=== PATIENT | male | born 1960 | race African-American/Black ===

== ENCOUNTER 2020-02-10 15:48 | Inpatient (IN) | payer MEDICAID, SELFPAY ==
[~2020-02-10] VITALS: Ht 193 cm; Wt 96.2 kg
[2020-02-10] MEDS ORDERED: AZITHROMYCIN IV 500 MG in IV DEXTROSE 5% 250 ML IV ONE (16:15)
[2020-02-10] MEDS ORDERED: CEFTRIAXONE 1 G in IV DEXTROSE 5% 50 ML IV ONE (16:15)
[2020-02-10] MEDS ORDERED: DEXAMETHASONE SOD PHOSPHATE 4 MG INJ IV ONE (16:15)
[2020-02-10] MEDS ORDERED: CEFTRIAXONE /D5W 50ML IVPB **ER PYXIS IV ONE (16:37)
[2020-02-10] MEDS ORDERED: AZITHROMYCIN 500MG/ D5W 250ML IVPB **ER PYXIS ONLY IV ONE (16:37)
[2020-02-10] MEDS ORDERED: DEXAMETHASONE SOD PHOSPHATE 4 MG INJ ONE (16:37)
[2020-02-10 16:49] LABS: BASOPHILS % (AUTO) 0.2 % (0.0-2.0); HEMATOCRIT 44.9 % (36.7-47.1); HEMOGLOBIN 15.3 g/dL (12.5-16.3); LYMPHOCYTES % (AUTO) 19.1 % (20.5-51.5); MEAN CORPUSCULAR HGB CONC 34 g/dL (32.5-36.3); MEAN CORPUSCULAR VOLUME 85.1 fL (73.0-96.2); MONOCYTES # (AUTO) 0.5 K/uL (2.0-10.0); MONOCYTES % (AUTO) 10.2 % (0.0-11.0); NEUTROPHILS # (AUTO) 3.7 K/uL (1.8-8.9); NEUTROPHILS % (AUTO) 70.5 % (38.5-71.5); PLATELET COUNT (AUTO) 278 K/uL (152-348); RED BLOOD CELL COUNT(AUTO) 5.28 MIL/uL (4.06-5.63); WHITE BLOOD COUNT (AUTO) 5.3 K/uL (3.6-10.2)
[2020-02-10] MEDS ORDERED: AMPH10CA3 PO (16:53)
[2020-02-10] MEDS ORDERED: HYDR-3972 PO (16:53)
[2020-02-10] MEDS ORDERED: POTA-58 PO (16:53)
[2020-02-10] MEDS ORDERED: AMIO200T5 PO (16:53)
[2020-02-10] MEDS ORDERED: EMPA25TA PO (16:53)
[2020-02-10] MEDS ORDERED: BISO5TAB20 PO (16:53)
[2020-02-10 17:12] LABS: CREATININE 1.2 mg/dL (0.6-1.3); POTASSIUM 5.4 mmol/L (3.5-5.1)
[2020-02-10] MEDS ORDERED: IV NORMAL SALINE 1000 ML BAG IV ONE (17:15)
[2020-02-10 17:22] LABS: BILIRUBIN,DIRECT 0.2 mg/dL (0.0-0.2); BILIRUBIN,TOTAL 0.4 mg/dL (0.2-1.0); MAGNESIUM 2.5 mg/dL (1.8-2.4)
[2020-02-10 17:34] LABS: THYROID STIMULATING HORMONE 0.952 mIU/mL (0.358-3.740)
[2020-02-10] MEDS ORDERED: HYDROCODONE/APAP 5-325MG TABLET PO ONE (18:00)
[2020-02-10] MEDS ORDERED: HYDROCODONE/APAP 5-325MG TABLET ONE (18:09)
[2020-02-10] MEDS ORDERED: CLOPIDOGREL 75 MG TABLET PO ONE (18:15)
[2020-02-10] MEDS ORDERED: INSULIN REGULAR, HUMAN 300 UNIT/3 ML VIAL IV ONE (18:15)
[2020-02-10] MEDS ORDERED: ENOXAPARIN SODIUM 100 MG/ML DISP.SYRIN SQ ONE ×2 (18:15→18:27)
[2020-02-10] MEDS ORDERED: ASPIRIN 325 MG TABLET PO ONE (18:15)
[2020-02-10] MEDS ORDERED: ACETAMINOPHEN ES 500 MG TABLET PO ONE (18:15)
[2020-02-10] MEDS ORDERED: CLOPIDOGREL 75 MG TABLET ONE (18:27)
[2020-02-10] MEDS ORDERED: ENOXAPARIN SODIUM 30 MG/0.3 ML DISP.SYRIN ONE (18:27)
[2020-02-10] MEDS ORDERED: ACETAMINOPHEN ES 500 MG TABLET ONE (18:27)
[2020-02-10] MEDS ORDERED: ASPIRIN 325 MG TABLET ONE (18:27)
[2020-02-10] MEDS ORDERED: INSULIN REGULAR, HUMAN 300 UNIT/3 ML VIAL ONE (18:28)
[2020-02-10] MEDS: ALBUTEROL SULFATE 8 GM HFA.AER.AD IH PRN (18:35)
--- NOTE | 2020-02-10 19:10 | NUR ---
Received report from MASOOD Ma for continuiy of care. Patient on NC 4L satting at 93-94. 447 was last blood sugar check and patient was covered with 10U of insulin. Lactic Acid 2.0 patient pending TELE admission.
--- NOTE | 2020-02-10 20:30 | NUR ---
Assisted patient to bedside commode, patient was able to move his bowels, stool was liquidy, no evidence of blood.
--- NOTE | 2020-02-10 23:30 | NUR ---
Report given to MASOOD Gimenez
[2020-02-11 00:12] VITALS: BP 149/71
--- NOTE | 2020-02-11 01:30 | NUR ---
Received report from Dusty CORREIA. Pt on the floor @ 0005 via [employer] Admitted to Tele/ [facility], under care of Dr. Javy Villalobos. Axox4, no acute distress noted. On 3L NC saturating @93% coughing. Afebrile VVS. RAC 18G IV intact and patent, running 70cc/hr NS. Oriented pt to the unit. All needs attended too. Snacks provided. Skin intact. Belongs List completed and placed in chart. Will continue plan of care.
[2020-02-11] MEDS: IV NS 1000 ML 1,000 ML IV PRN ×2 (01:34→18:59)
--- NOTE | 2020-02-11 04:12 | NUR ---
UA and Influenza antigen collected and sent to lab.
[2020-02-11 04:15] VITALS: BP 123/54
[2020-02-11] MEDS: HYDROCODONE/APAP 5-325MG TABLET PO PRN ×2 (05:30→15:55)
[2020-02-11 05:57] LABS: *BILIRUBIN,URIN NEGATIVE (NEGATIVE); *BLOOD, URINE NEGATIVE (NEGATIVE); *CLARITY,URINE CLEAR (CLEAR); *COLOR,URINE YELLOW (YELLOW); *KETONES,URINE 2+ (NEGATIVE); *UROBILINOGEN,URINE 0.2 E.U./dl (NORMAL); LEUKOCYTE ESTERASE ,URINE NEGATIVE (NEGATIVE); NITRITE, URINE NEGATIVE (NEGATIVE); PH,URINE 5.5 (5.0-8.0)
[2020-02-11 06:18] LABS: UGLUCOSE 2+ (NEGATIVE)
[2020-02-11 06:19] LABS: RBC,URINE 0-3 /HPF (0-3)
[2020-02-11 06:20] LABS: BACTERIA,URINE NONE SEEN /HPF (NONE SEEN); SQUAMOUS EPITHELIAL CELL,UR FEW /HPF (NONE SEEN); WBC,URINE 0-3 /HPF (0-3)
--- NOTE | 2020-02-11 06:30 | NUR ---
pt pulled 18G RAC IV. Inserted 20G LFA, intact, running NS 70cc/hr Complaint of 8/10 generalized body pain/aches , administered [place] per patient request, effective
[2020-02-11] MEDS: PANTOPRAZOLE SODIUM 40 MG TABLET.DR PO SCH (06:44)
[2020-02-11 07:11] LABS: BASOPHILS % (AUTO) 0.3 % (0.0-2.0); HEMATOCRIT 41.7 % (36.7-47.1); HEMOGLOBIN 14.5 g/dL (12.5-16.3); LYMPHOCYTES # (AUTO) 0.8 K/uL (20.0-40.0); LYMPHOCYTES % (AUTO) 16.5 % (20.5-51.5); MEAN CORPUSCULAR HEMOGLOBIN 29.4 uug (23.8-33.4); MEAN CORPUSCULAR HGB CONC 35 g/dL (32.5-36.3); MEAN CORPUSCULAR VOLUME 84.3 fL (73.0-96.2); MONOCYTES # (AUTO) 0.5 K/uL (2.0-10.0); MONOCYTES % (AUTO) 9.3 % (0.0-11.0); NEUTROPHILS # (AUTO) 3.6 K/uL (1.8-8.9); NEUTROPHILS % (AUTO) 73.9 % (38.5-71.5); PLATELET COUNT (AUTO) 298 K/uL (152-348); RED BLOOD CELL COUNT(AUTO) 4.95 MIL/uL (4.06-5.63); WHITE BLOOD COUNT (AUTO) 4.9 K/uL (3.6-10.2)
[2020-02-11 07:48] LABS: BILIRUBIN,TOTAL 0.3 mg/dL (0.2-1.0); CREATININE 1.2 mg/dL (0.6-1.3); MAGNESIUM 2.2 mg/dL (1.8-2.4); PHOSPHOROUS 4.2 mg/dL (2.5-4.9); POTASSIUM 4.4 mmol/L (3.5-5.1); TOTAL PROTEIN, SERUM 7.5 g/dL (6.4-8.2)
[2020-02-11] MEDS ORDERED: DEXTROSE 50% 50 ML DISP.SYRIN IV PRN (08:30)
[2020-02-11] MEDS: BLOOD SUGAR DIAGNOSTIC 1 EACH STRIP VI SCH ×4 (08:42→21:57)
[2020-02-11] MEDS: INSULIN REGULAR, HUMAN 300 UNIT/3 ML VIAL SQ PRN ×3 (08:44→16:16)
[2020-02-11] MEDS ORDERED: EMPAGLIFLOZIN 25 MG PO SCH (09:00)
[2020-02-11] MEDS: ASPIRIN EC 325 MG TABLET.DR PO SCH (09:07)
[2020-02-11] MEDS: AMIODARONE HCL 200 MG TABLET PO SCH (09:07)
[2020-02-11] MEDS: DEXAMETHASONE SOD PHOSPHATE 4 MG INJ IV SCH (09:08)
[2020-02-11] MEDS: CHOLECALCIFEROL 1,000 UNIT TABLET PO SCH (09:11)
[2020-02-11] MEDS: ENOXAPARIN SODIUM 40 MG/0.4 ML DISP.SYRIN SQ SCH (09:17)
[2020-02-11 12:47] VITALS: BP 113/62
[2020-02-11] MEDS: glipiZIDE 5 MG TABLET PO SCH ×2 (13:00→15:55)
[2020-02-11 16:13] VITALS: BP 114/65
[2020-02-11 20:18] VITALS: BP 112/58
[2020-02-11] MEDS: DOCUSATE SODIUM 100 MG CAPSULE PO SCH (21:46)
[2020-02-11] MEDS: INSULIN REGULAR, HUMAN 300 UNITS/3 ML VIAL SQ PRN (21:58)
--- NOTE | 2020-02-11 23:43 | NUR ---
Received pt resting in bed and watching tv. AAO x3-4. On 3L O2 via NC. No acute distress noted. Due med given as ordered. Accucheck 264, insulin coverage as per sliding scale given. IV site on left forearm running NS 70cc/hr. Safety measures maintained. Call light within reach. Will continue to monitor.
[2020-02-12 00:09] VITALS: BP 117/70
[2020-02-12] MEDS: HYDROCODONE/APAP 5-325MG TABLET PO PRN ×3 (01:02→18:26)
[2020-02-12 04:15] VITALS: BP 113/65
[2020-02-12] MEDS: BLOOD SUGAR DIAGNOSTIC 1 EACH STRIP VI SCH ×4 (06:30→20:59)
[2020-02-12] MEDS: PANTOPRAZOLE SODIUM 40 MG TABLET.DR PO SCH (06:30)
[2020-02-12 06:35] LABS: BASOPHILS % (AUTO) 0.3 % (0.0-2.0); HEMATOCRIT 38.5 % (36.7-47.1); HEMOGLOBIN 13.3 g/dL (12.5-16.3); LYMPHOCYTES % (AUTO) 13.8 % (20.5-51.5); MAGNESIUM 2.1 mg/dL (1.8-2.4); MEAN CORPUSCULAR HEMOGLOBIN 28.9 uug (23.8-33.4); MEAN CORPUSCULAR HGB CONC 35 g/dL (32.5-36.3); MEAN CORPUSCULAR VOLUME 83.7 fL (73.0-96.2); MONOCYTES # (AUTO) 0.5 K/uL (2.0-10.0); MONOCYTES % (AUTO) 6.4 % (0.0-11.0); NEUTROPHILS # (AUTO) 5.9 K/uL (1.8-8.9); NEUTROPHILS % (AUTO) 79.5 % (38.5-71.5); PLATELET COUNT (AUTO) 297 K/uL (152-348); POTASSIUM 3.9 mmol/L (3.5-5.1); WHITE BLOOD COUNT (AUTO) 7.4 K/uL (3.6-10.2)
--- NOTE | 2020-02-12 07:30 | NUR ---
Received patient in bed awake, alert and oriented times 4. No sign of distress noted. Patient BG is 310 will cover with insulin sliding scale. Patient is on 3 L of oxygen. Safety precautions are in place with call light and belongings within reach. Will continue to monitor.
[2020-02-12] MEDS: glipiZIDE 5 MG TABLET PO SCH (08:38)
[2020-02-12] MEDS: CHOLECALCIFEROL 1,000 UNIT TABLET PO SCH (08:39)
[2020-02-12] MEDS: ASPIRIN EC 325 MG TABLET.DR PO SCH (08:39)
[2020-02-12] MEDS: ENOXAPARIN SODIUM 40 MG/0.4 ML DISP.SYRIN SQ SCH (08:40)
[2020-02-12] MEDS: DEXAMETHASONE SOD PHOSPHATE 4 MG INJ IV SCH (08:40)
[2020-02-12] MEDS: INSULIN REGULAR, HUMAN 300 UNIT/3 ML VIAL SQ PRN ×3 (08:41→17:47)
[2020-02-12] MEDS: AMIODARONE HCL 200 MG TABLET PO SCH (08:43)
[2020-02-12] MEDS ORDERED: glipiZIDE 5 MG TABLET PO ONE (09:39)
[2020-02-12] MEDS: IV NS 1000 ML 1,000 ML IV PRN (11:49)
[2020-02-12 12:00] VITALS: BP 112/58
[2020-02-12] MEDS: glipiZIDE 10 MG TABLET PO SCH (16:25)
[2020-02-12 16:43] VITALS: BP 111/63
--- NOTE | 2020-02-12 18:53 | NUR ---
Patient is resting in bed . No sign of distress noted. Gave all medications as ordered. Safety precautions in place with call light and belongings within reach. Will endorse to oncoming nurse
[2020-02-12 20:53] VITALS: BP 103/64
[2020-02-12] MEDS: DOCUSATE SODIUM 100 MG CAPSULE PO SCH (20:54)
[2020-02-12] MEDS: INSULIN REGULAR, HUMAN 300 UNITS/3 ML VIAL SQ PRN (21:11)
--- NOTE | 2020-02-13 00:33 | NUR ---
Received pt resting in bed and watching tv. AAO x3-4. On 3L O2 via NC, no acute distress noted. Denies pain/ discomfort. Accucheck 229, insulin coverage given as per sliding scale. IV on left forearm, IVF running. Isolation precaution for covid-19. Safety measures maintained. Call light and personal items within reach. Will continue to monitor.
[2020-02-13] MEDS ORDERED: IV D5W-0.45% NS +20 KCL 1,000 ML IV ONE (04:14)
[2020-02-13 04:27] VITALS: BP 134/77
[2020-02-13] MEDS: IV NS 1000 ML 1,000 ML IV PRN ×2 (05:05→21:12)
[2020-02-13] MEDS: PANTOPRAZOLE SODIUM 40 MG TABLET.DR PO SCH (06:04)
[2020-02-13] MEDS: BLOOD SUGAR DIAGNOSTIC 1 EACH STRIP VI SCH ×4 (06:41→21:06)
[2020-02-13 07:05] LABS: BASOPHILS % (AUTO) 0.2 % (0.0-2.0); HEMOGLOBIN 12.7 g/dL (12.5-16.3); LYMPHOCYTES % (AUTO) 12.2 % (20.5-51.5); MEAN CORPUSCULAR HEMOGLOBIN 29.3 uug (23.8-33.4); MEAN CORPUSCULAR HGB CONC 34 g/dL (32.5-36.3); MEAN CORPUSCULAR VOLUME 85.1 fL (73.0-96.2); MONOCYTES # (AUTO) 0.5 K/uL (2.0-10.0); NEUTROPHILS # (AUTO) 6.5 K/uL (1.8-8.9); NEUTROPHILS % (AUTO) 81.6 % (38.5-71.5); PLATELET COUNT (AUTO) 324 K/uL (152-348); RED BLOOD CELL COUNT(AUTO) 4.35 MIL/uL (4.06-5.63); WHITE BLOOD COUNT (AUTO) 7.9 K/uL (3.6-10.2)
[2020-02-13 07:12] LABS: BILIRUBIN,TOTAL 0.4 mg/dL (0.2-1.0); CREATININE 0.9 mg/dL (0.6-1.3); PHOSPHOROUS 3.1 mg/dL (2.5-4.9); POTASSIUM 3.5 mmol/L (3.5-5.1); TOTAL PROTEIN, SERUM 6.4 g/dL (6.4-8.2); URIC ACID 1.5 mg/dL (3.5-7.2)
[2020-02-13 07:26] LABS: THYROID STIMULATING HORMONE 0.469 mIU/mL (0.358-3.740)
[2020-02-13] MEDS: ASPIRIN EC 325 MG TABLET.DR PO SCH (09:01)
[2020-02-13] MEDS: CHOLECALCIFEROL 1,000 UNIT TABLET PO SCH (09:01)
[2020-02-13] MEDS: DEXAMETHASONE SOD PHOSPHATE 4 MG INJ IV SCH (09:01)
[2020-02-13] MEDS: glipiZIDE 10 MG TABLET PO SCH ×2 (09:01→16:33)
[2020-02-13] MEDS: ENOXAPARIN SODIUM 40 MG/0.4 ML DISP.SYRIN SQ SCH (09:04)
[2020-02-13] MEDS: ALBUTEROL SULFATE 8 GM HFA.AER.AD IH PRN (09:07)
[2020-02-13] MEDS: AMIODARONE HCL 200 MG TABLET PO SCH (09:23)
[2020-02-13] MEDS: INSULIN REGULAR, HUMAN 300 UNIT/3 ML VIAL SQ PRN ×3 (09:48→16:42)
[2020-02-13 12:00] VITALS: BP 136/59
[2020-02-13 16:02] VITALS: BP 124/68
--- NOTE | 2020-02-13 19:12 | NUR ---
Dr. Palafox in the unit, informed MD regarding patient's non-productive cough and MD ordered Robitussin DM 10ml PO Q 6hrs PRN.
[2020-02-13 20:00] VITALS: BP 128/65
[2020-02-13] MEDS: DOCUSATE SODIUM 100 MG CAPSULE PO SCH (21:05)
[2020-02-13] MEDS: INSULIN REGULAR, HUMAN 300 UNITS/3 ML VIAL SQ PRN (21:07)
[2020-02-13] MEDS: HYDROCODONE/APAP 5-325MG TABLET PO PRN (21:28)
[2020-02-14 04:00] VITALS: BP 137/68
--- NOTE | 2020-02-14 06:51 | NUR ---
Pt remained stable throughout the shift. Denies any acute distress or pain at this time. V/S stable on 10L Non Rebreather Mask. Comfort care and needs attended. Isolation precaution maintained. Safety measures in place. Call light within reach. Will endorse to oncoming nurse accordingly.
[2020-02-14] MEDS: glipiZIDE 10 MG TABLET PO SCH ×2 (06:53→17:13)
[2020-02-14] MEDS: PANTOPRAZOLE SODIUM 40 MG TABLET.DR PO SCH (06:53)
[2020-02-14] MEDS: BLOOD SUGAR DIAGNOSTIC 1 EACH STRIP VI SCH ×4 (06:59→21:35)
[2020-02-14] MEDS: ASPIRIN EC 325 MG TABLET.DR PO SCH (08:25)
[2020-02-14] MEDS: CHOLECALCIFEROL 1,000 UNIT TABLET PO SCH (08:26)
[2020-02-14] MEDS: DEXAMETHASONE SOD PHOSPHATE 4 MG INJ IV SCH (08:26)
[2020-02-14] MEDS: ENOXAPARIN SODIUM 40 MG/0.4 ML DISP.SYRIN SQ SCH (08:29)
[2020-02-14] MEDS: INSULIN REGULAR, HUMAN 300 UNIT/3 ML VIAL SQ PRN ×3 (08:34→17:16)
[2020-02-14] MEDS: AMIODARONE HCL 200 MG TABLET PO SCH (08:46)
[2020-02-14 09:28] VITALS: BP 153/75
[2020-02-14 12:32] VITALS: BP 127/65
[2020-02-14] MEDS: IV NS 1000 ML 1,000 ML IV PRN (13:17)
[2020-02-14 15:39] VITALS: BP 136/76
[2020-02-14] MEDS: METFORMIN HCL 500 MG TABLET PO SCH (17:13)
--- NOTE | 2020-02-14 18:52 | NUR ---
Patient is alert and oriented x4. Patient is in no acute distress. Patient is receiving 10 L O2 via non-rebreather, tolerating well and comfortable. Patient has episodes of hyperglycemia, insulin given per sliding scale without adverse reaction. Patient provided with education about symptoms of hyperglycemia and instructed to inform nurse if these occur, able to verbalize understanding. Patient is able to tolerate food and fluids. Patient's need met and he has been made comfortable. Patient's call light and personal belongings placed within reach.
[2020-02-14 20:00] VITALS: BP 136/60
[2020-02-14] MEDS: DOCUSATE SODIUM 100 MG CAPSULE PO SCH (21:25)
[2020-02-14] MEDS: INSULIN GLARGINE,HUM 300 UNITS/3 ML CARTRIDGE SQ SCH (21:36)
[2020-02-14] MEDS: INSULIN REGULAR, HUMAN 300 UNITS/3 ML VIAL SQ PRN (21:38)
[2020-02-14] MEDS: ACETAMINOPHEN 325 MG TABLET PO PRN (21:44)
--- NOTE | 2020-02-14 21:45 | NUR ---
Patient complaining of severe headache, Tylenol given as needed and ordered. Will monitor.
[2020-02-15 04:00] VITALS: BP 136/67
[2020-02-15] MEDS: IV NS 1000 ML 1,000 ML IV PRN (04:13)
[2020-02-15] MEDS: glipiZIDE 10 MG TABLET PO SCH ×2 (06:46→17:17)
[2020-02-15] MEDS: PANTOPRAZOLE SODIUM 40 MG TABLET.DR PO SCH (06:46)
[2020-02-15] MEDS: BLOOD SUGAR DIAGNOSTIC 1 EACH STRIP VI SCH ×4 (06:56→21:36)
--- NOTE | 2020-02-15 09:00 | NUR ---
Pt was complaining of SOB and show increased WOB. Placed on HF with flow of 55 and 90% FiO2. Pt appear to tico HF at this time. will cont to monitor.
[2020-02-15] MEDS: HYDROCODONE/APAP 5-325MG TABLET PO PRN ×3 (09:31→21:24)
[2020-02-15] MEDS: DEXAMETHASONE SOD PHOSPHATE 4 MG INJ IV SCH (09:31)
[2020-02-15] MEDS: ASPIRIN EC 325 MG TABLET.DR PO SCH (09:32)
[2020-02-15] MEDS: METFORMIN HCL 500 MG TABLET PO SCH ×2 (09:32→17:15)
[2020-02-15] MEDS: AMIODARONE HCL 200 MG TABLET PO SCH (09:32)
[2020-02-15] MEDS: CHOLECALCIFEROL 1,000 UNIT TABLET PO SCH (09:33)
[2020-02-15] MEDS: ENOXAPARIN SODIUM 40 MG/0.4 ML DISP.SYRIN SQ SCH (09:33)
[2020-02-15 10:34] LABS: CREATININE 0.9 mg/dL (0.6-1.3); MAGNESIUM 1.6 mg/dL (1.8-2.4); PHOSPHOROUS 3.5 mg/dL (2.5-4.9); POTASSIUM 3.1 mmol/L (3.5-5.1)
[2020-02-15 10:39] LABS: BASOPHILS % (AUTO) 0.1 % (0.0-2.0); EOSINOPHILS % (AUTO) 0.3 % (0.0-7.0); HEMATOCRIT 39.2 % (36.7-47.1); HEMOGLOBIN 13.5 g/dL (12.5-16.3); LYMPHOCYTES # (AUTO) 0.8 K/uL (20.0-40.0); LYMPHOCYTES % (AUTO) 8.3 % (20.5-51.5); MEAN CORPUSCULAR HEMOGLOBIN 28.9 uug (23.8-33.4); MEAN CORPUSCULAR HGB CONC 35 g/dL (32.5-36.3); MEAN CORPUSCULAR VOLUME 83.8 fL (73.0-96.2); MONOCYTES # (AUTO) 0.6 K/uL (2.0-10.0); MONOCYTES % (AUTO) 6.9 % (0.0-11.0); NEUTROPHILS # (AUTO) 7.6 K/uL (1.8-8.9); NEUTROPHILS % (AUTO) 84.4 % (38.5-71.5); PLATELET COUNT (AUTO) 365 K/uL (152-348); RED BLOOD CELL COUNT(AUTO) 4.67 MIL/uL (4.06-5.63)
[2020-02-15] MEDS ORDERED: POTASSIUM CHLORIDE 20 MEQ TAB.PRT.SR PO ONE (11:00)
[2020-02-15 11:56] VITALS: BP 118/66
[2020-02-15] MEDS: INSULIN REGULAR, HUMAN 300 UNIT/3 ML VIAL SQ PRN ×2 (12:04→17:32)
[2020-02-15 12:32] LABS: FERRITIN 420 ng/mL (26-388)
[2020-02-15 13:04] LABS: ABG BASE EXCESS 1.1 mmol/L; ABG HCO3 24.7 mmol/L; ABG PH 7.454 (7.350-7.450); ABG PO2 104.5 mmHg (75.0-100.0); ABG SITE RIGHT RADIAL; ABG TOTAL HEMOGLOBIN 14.4 G/dL (13.5-18.0); MetHb 0.1 % (0.0-1.5); O2Hb 97.2 % (94.0-97.0); VENT MODE HF - Aquinox
[2020-02-15] MEDS ORDERED: REMDESIVIR (CHARGED) 200 MG in IV NORMAL SALINE 250 ML IV ONE (14:00)
[2020-02-15] MEDS ORDERED: AZITHROMYCIN IV 500 MG in IV DEXTROSE 5% 250 ML IV SCH (14:45)
[2020-02-15] MEDS ORDERED: CHOLECALCIFEROL 1,000 UNIT TABLET PO SCH (14:45)
[2020-02-15] MEDS ORDERED: ALBUTEROL SULFATE 8 GM HFA.AER.AD IH PRN (15:30)
[2020-02-15 15:51] VITALS: BP 98/54
[2020-02-15] MEDS: DOXYCYCLINE HYCLATE 100 MG TABLET PO SCH ×2 (17:15→21:25)
[2020-02-15] MEDS: FUROSEMIDE 20 MG/2 ML VIAL IV SCH (17:15)
[2020-02-15] MEDS: ZINC SULFATE 220 MG CAPSULE PO SCH (17:15)
[2020-02-15] MEDS: FLUTICASONE/VILANTEROL 1 EACH BLST.W.DEV INH SCH (19:05)
[2020-02-15 20:00] VITALS: BP 119/66
[2020-02-15] MEDS: GUAIFENESIN/DEXTROMETHORPHAN 5 ML UDC PO PRN (21:24)
[2020-02-15] MEDS: DOCUSATE SODIUM 100 MG CAPSULE PO SCH (21:24)
[2020-02-15] MEDS: INSULIN GLARGINE,HUM 300 UNITS/3 ML CARTRIDGE SQ SCH (21:37)
[2020-02-15] MEDS: INSULIN REGULAR, HUMAN 300 UNITS/3 ML VIAL SQ PRN (21:39)
[2020-02-16 00:53] VITALS: BP 100/52
[2020-02-16] MEDS: ACETAMINOPHEN 325 MG TABLET PO PRN (04:40)
[2020-02-16 04:58] VITALS: BP 126/70
[2020-02-16] MEDS: PANTOPRAZOLE SODIUM 40 MG TABLET.DR PO SCH (06:54)
[2020-02-16] MEDS: glipiZIDE 10 MG TABLET PO SCH ×2 (06:54→17:34)
[2020-02-16] MEDS: BLOOD SUGAR DIAGNOSTIC 1 EACH STRIP VI SCH ×4 (07:05→20:45)
--- NOTE | 2020-02-16 07:17 | NUR ---
Pt remained stable throughout the shift. Denies any acute distress or pain at this time. V/S stable on 40L high flow oxygen, tolerating well. NSR on tele monitor. Comfort care and needs attended. Isolation precaution maintained. Blood glucose monitored and sliding scale protocol implemented. Safety measures in place. Bed low and locked in position. Call light within reach. Will endorse to oncoming nurse accordingly.
[2020-02-16 08:43] LABS: BILIRUBIN,DIRECT 0.1 mg/dL (0.0-0.2); BILIRUBIN,TOTAL 0.5 mg/dL (0.2-1.0); CREATININE 0.8 mg/dL (0.6-1.3); MAGNESIUM 1.6 mg/dL (1.8-2.4); PHOSPHOROUS 2.6 mg/dL (2.5-4.9); POTASSIUM 3.3 mmol/L (3.5-5.1); TOTAL PROTEIN, SERUM 6.4 g/dL (6.4-8.2)
[2020-02-16 09:03] LABS: BASOPHILS # (AUTO) 0.1 K/uL (0.0-8.0); BASOPHILS % (AUTO) 1.4 % (0.0-2.0); EOSINOPHILS # (AUTO) 0.1 K/uL (0.0-0.7); EOSINOPHILS % (AUTO) 1.1 % (0.0-7.0); HEMATOCRIT 36.3 % (36.7-47.1); HEMOGLOBIN 12.6 g/dL (12.5-16.3); LYMPHOCYTES # (AUTO) 0.6 K/uL (20.0-40.0); LYMPHOCYTES % (AUTO) 6.3 % (20.5-51.5); MEAN CORPUSCULAR HEMOGLOBIN 29.3 uug (23.8-33.4); MEAN CORPUSCULAR HGB CONC 35 g/dL (32.5-36.3); MEAN CORPUSCULAR VOLUME 84.2 fL (73.0-96.2); MONOCYTES # (AUTO) 0.6 K/uL (2.0-10.0); MONOCYTES % (AUTO) 6.2 % (0.0-11.0); PLATELET COUNT (AUTO) 366 K/uL (152-348); RED BLOOD CELL COUNT(AUTO) 4.31 MIL/uL (4.06-5.63); WHITE BLOOD COUNT (AUTO) 9.4 K/uL (3.6-10.2)
[2020-02-16] MEDS ORDERED: MAGNESIUM OXIDE 400 MG TABLET PO ONE (09:30)
[2020-02-16] MEDS ORDERED: POTASSIUM CHLORIDE 20 MEQ TAB.PRT.SR PO ONE (09:30)
[2020-02-16] MEDS: METFORMIN HCL 500 MG TABLET PO SCH (09:50)
[2020-02-16] MEDS: ZINC SULFATE 220 MG CAPSULE PO SCH (09:54)
[2020-02-16] MEDS: CHOLECALCIFEROL 1,000 UNIT TABLET PO SCH (09:54)
[2020-02-16] MEDS: DOXYCYCLINE HYCLATE 100 MG TABLET PO SCH ×2 (09:56→20:21)
[2020-02-16] MEDS: ASPIRIN EC 325 MG TABLET.DR PO SCH (09:56)
[2020-02-16] MEDS: FUROSEMIDE 20 MG/2 ML VIAL IV SCH (09:56)
[2020-02-16] MEDS: AMIODARONE HCL 200 MG TABLET PO SCH (09:56)
[2020-02-16] MEDS: DEXAMETHASONE SOD PHOSPHATE 4 MG INJ IV SCH (09:57)
[2020-02-16] MEDS: FLUTICASONE/VILANTEROL 1 EACH BLST.W.DEV INH SCH (10:00)
[2020-02-16] MEDS: PROTEIN SUPPLEMENT (PROSTAT) 30 ML LIQUID PO SCH (10:01)
[2020-02-16] MEDS: ENOXAPARIN SODIUM 40 MG/0.4 ML DISP.SYRIN SQ SCH (10:03)
[2020-02-16] MEDS: HYDROCODONE/APAP 5-325MG TABLET PO PRN (10:20)
[2020-02-16] MEDS ORDERED: REMDESIVIR (CHARGED) 100 MG in IV NORMAL SALINE 230 ML IV SCH (12:00)
[2020-02-16 12:13] VITALS: BP 110/49
[2020-02-16] MEDS: INSULIN REGULAR, HUMAN 300 UNIT/3 ML VIAL SQ PRN ×2 (12:14→18:01)
[2020-02-16] MEDS: REMDESIVIR (CHARGED) 100 MG in IV NORMAL SALINE 100 ML IV SCH (14:34)
[2020-02-16] MEDS ORDERED: IV NORMAL SALINE 250 ML IV ONE (15:17)
[2020-02-16] MEDS ORDERED: IOHEXOL 350 100 ML INFUS..BTL ONE (15:17)
[2020-02-16] MEDS ORDERED: SWABABLE VALVE TRANSFER SET EA MC ONE (15:17)
[2020-02-16 16:38] VITALS: BP 104/62
[2020-02-16] MEDS ORDERED: ENOXAPARIN SODIUM 60 MG/0.6 ML DISP.SYRIN SQ ONE (18:00)
--- NOTE | 2020-02-16 19:30 | NUR ---
RECEIVED PT AWAKE, ALERT, AND ORIENTEDX4. PT IN NO ACUTE DISTRESS. IV INTACT. PT ON 40L HIGH FLOW. PT ON NORMAL SINUS RHYTHM. SAFETY AND COMFORT PROVIDED. WILL CONTINUE TO MONITOR.
[2020-02-16] MEDS: DOCUSATE SODIUM 100 MG CAPSULE PO SCH (20:21)
[2020-02-16] MEDS: ENOXAPARIN SODIUM 100 MG/ML DISP.SYRIN SQ SCH (20:24)
[2020-02-16] MEDS: INSULIN GLARGINE,HUM 300 UNITS/3 ML CARTRIDGE SQ SCH (20:24)
[2020-02-16 20:41] VITALS: BP 120/69
[2020-02-16] MEDS: INSULIN REGULAR, HUMAN 300 UNITS/3 ML VIAL SQ PRN (20:46)
[2020-02-16] MEDS ORDERED: CEFTRIAXONE 1 G VIAL IM SCH (21:30)
[2020-02-16] MEDS: AZITHROMYCIN IV 500 MG in IV DEXTROSE 5% 250 ML IV SCH (21:30)
--- NOTE | 2020-02-16 22:00 | NUR ---
remdesivir done. pt tolerated it well. no adverse reaction. Addendum: 02/17/20 at 4889 by BHAVIK CAZARES RN jasmin pt
[2020-02-16] MEDS ORDERED: CEFTRIAXONE /D5W 50ML IVPB **ER PYXIS IV ONE (23:05)
[2020-02-16] MEDS ORDERED: AZITHROMYCIN 500 MG VIAL IV ONE (23:06)
[2020-02-17 00:37] VITALS: BP 118/73
[2020-02-17] MEDS: ACETAMINOPHEN 325 MG TABLET PO PRN ×2 (03:43→09:29)
[2020-02-17] MEDS: GUAIFENESIN/DEXTROMETHORPHAN 5 ML UDC PO PRN (03:43)
[2020-02-17 04:41] VITALS: BP 94/72
--- NOTE | 2020-02-17 06:28 | NUR ---
PT SLEPT INTERMITTENTLY. PRESCRIBED MEDICATION GIVEN AND PT TOLERATED IT WELL. IV INTACT. PT ON 40L HIGH FLOW. PT ON SINUS RHYTHM. PT WAS GIVEN TYLENOL 650 MG AT 0343H FOR PAIN AND ROBITUSSIN DM 10 ML FOR COUGH PER PT REQUEST. PT TOLERATED IT WELL. SAFETY AND COMFORT PROVIDED. ALL NEEDS ARE MET. WILL CONTINUE TO MONITOR.
[2020-02-17] MEDS: PANTOPRAZOLE SODIUM 40 MG TABLET.DR PO SCH (06:31)
[2020-02-17] MEDS: BLOOD SUGAR DIAGNOSTIC 1 EACH STRIP VI SCH ×4 (06:32→20:52)
[2020-02-17 07:59] LABS: BASOPHILS % (AUTO) 0.2 % (0.0-2.0); EOSINOPHILS # (AUTO) 0.1 K/uL (0.0-0.7); EOSINOPHILS % (AUTO) 1.3 % (0.0-7.0); HEMATOCRIT 36.5 % (36.7-47.1); HEMOGLOBIN 12.6 g/dL (12.5-16.3); LYMPHOCYTES # (AUTO) 1.1 K/uL (20.0-40.0); LYMPHOCYTES % (AUTO) 12.6 % (20.5-51.5); MEAN CORPUSCULAR HGB CONC 35 g/dL (32.5-36.3); MEAN CORPUSCULAR VOLUME 84.3 fL (73.0-96.2); MONOCYTES # (AUTO) 0.7 K/uL (2.0-10.0); NEUTROPHILS # (AUTO) 6.8 K/uL (1.8-8.9); NEUTROPHILS % (AUTO) 77.9 % (38.5-71.5); PLATELET COUNT (AUTO) 414 K/uL (152-348); RED BLOOD CELL COUNT(AUTO) 4.33 MIL/uL (4.06-5.63); WHITE BLOOD COUNT (AUTO) 8.8 K/uL (3.6-10.2)
[2020-02-17 08:30] LABS: BILIRUBIN,DIRECT 0.2 mg/dL (0.0-0.2); BILIRUBIN,TOTAL 0.4 mg/dL (0.2-1.0); CREATININE 0.9 mg/dL (0.6-1.3); POTASSIUM 3.3 mmol/L (3.5-5.1); TOTAL PROTEIN, SERUM 6.7 g/dL (6.4-8.2)
[2020-02-17] MEDS: ENOXAPARIN SODIUM 100 MG/ML DISP.SYRIN SQ SCH ×2 (08:54→20:52)
[2020-02-17] MEDS: glipiZIDE 10 MG TABLET PO SCH ×2 (08:58→16:21)
[2020-02-17] MEDS: ASPIRIN EC 325 MG TABLET.DR PO SCH (08:58)
[2020-02-17] MEDS: ZINC SULFATE 220 MG CAPSULE PO SCH (08:58)
[2020-02-17] MEDS: CHOLECALCIFEROL 1,000 UNIT TABLET PO SCH (08:58)
[2020-02-17] MEDS: DEXAMETHASONE SOD PHOSPHATE 4 MG INJ IV SCH (08:59)
[2020-02-17] MEDS: FUROSEMIDE 20 MG/2 ML VIAL IV SCH (08:59)
[2020-02-17] MEDS: PROTEIN SUPPLEMENT (PROSTAT) 30 ML LIQUID PO SCH (09:00)
[2020-02-17] MEDS: AMIODARONE HCL 200 MG TABLET PO SCH (09:07)
[2020-02-17] MEDS: FLUTICASONE/VILANTEROL 1 EACH BLST.W.DEV INH SCH (09:08)
[2020-02-17] MEDS ORDERED: POTASSIUM CHLORIDE 20 MEQ TAB.PRT.SR PO ONE (10:30)
[2020-02-17 12:00] VITALS: BP 131/62
[2020-02-17] MEDS: HYDROCODONE/APAP 5-325MG TABLET PO PRN (12:23)
[2020-02-17] MEDS: INSULIN REGULAR, HUMAN 300 UNIT/3 ML VIAL SQ PRN ×3 (12:25→20:51)
[2020-02-17 14:20] VITALS: BP 117/63
[2020-02-17] MEDS: REMDESIVIR (CHARGED) 100 MG in IV NORMAL SALINE 100 ML IV SCH (14:24)
[2020-02-17 16:00] VITALS: BP 119/68
[2020-02-17] MEDS ORDERED: ZOLPIDEM 5 MG TABLET PO PRN (18:15)
--- NOTE | 2020-02-17 20:15 | NUR ---
Patient was on chair throughout the day, stated feels better on chair. On high flow 40L, SOB on exertion. On tele, denied any chest pain at this time. Late afternoon, had BM on bedside commode, with slight difficulty on transfer. Safety precaution in place. No other complaints at this time.
[2020-02-17 20:33] VITALS: BP 121/65
[2020-02-17] MEDS: DOCUSATE SODIUM 100 MG CAPSULE PO SCH (20:46)
[2020-02-17] MEDS: INSULIN GLARGINE,HUM 300 UNITS/3 ML CARTRIDGE SQ SCH (20:49)
[2020-02-17] MEDS ORDERED: CEFTRIAXONE 1 G in IV DEXTROSE 5% 50 ML IV SCH (21:00)
--- NOTE | 2020-02-17 21:00 | NUR ---
Received pt with IV pulled out. New IV 20G Left hand inserted, patent and intact. Denies any acute distress or pain at this time. V/S stable on 40L high flow oxygen, tolerating well. NSR on tele monitor. All needs attended too promptly, snack provided. Isolation precaution maintained. Blood glucose monitored and sliding scale protocol implemented. All due medication administered. Safety measures in place. Bed low and locked in position. Call light within reach. Will continue to monitor.
[2020-02-17] MEDS: AZITHROMYCIN IV 500 MG in IV DEXTROSE 5% 250 ML IV SCH (22:32)
[2020-02-18 00:18] VITALS: BP 118/66
--- NOTE | 2020-02-18 02:30 | NUR ---
Patient complaint of SOB, and coughing notified respiratory. Pt is now on high flow 45L @80% tolerating well. Stating he " feels better and can now lie in bed. Safety measures maintained. Call light and all personal items within reach. Will continue plan of care.
[2020-02-18 05:59] VITALS: BP 119/59
[2020-02-18] MEDS: PANTOPRAZOLE SODIUM 40 MG TABLET.DR PO SCH (06:11)
[2020-02-18] MEDS: BLOOD SUGAR DIAGNOSTIC 1 EACH STRIP VI SCH ×4 (06:20→21:54)
[2020-02-18 08:45] LABS: BASOPHILS % (AUTO) 0.2 % (0.0-2.0); EOSINOPHILS # (AUTO) 0.2 K/uL (0.0-0.7); HEMATOCRIT 38.1 % (36.7-47.1); HEMOGLOBIN 13.1 g/dL (12.5-16.3); LYMPHOCYTES # (AUTO) 1.2 K/uL (20.0-40.0); LYMPHOCYTES % (AUTO) 14.6 % (20.5-51.5); MEAN CORPUSCULAR HEMOGLOBIN 29.1 uug (23.8-33.4); MEAN CORPUSCULAR HGB CONC 35 g/dL (32.5-36.3); MEAN CORPUSCULAR VOLUME 84.5 fL (73.0-96.2); MONOCYTES # (AUTO) 0.5 K/uL (2.0-10.0); MONOCYTES % (AUTO) 5.9 % (0.0-11.0); NEUTROPHILS # (AUTO) 6.1 K/uL (1.8-8.9); NEUTROPHILS % (AUTO) 77.3 % (38.5-71.5); PLATELET COUNT (AUTO) 429 K/uL (152-348); RED BLOOD CELL COUNT(AUTO) 4.51 MIL/uL (4.06-5.63); WHITE BLOOD COUNT (AUTO) 7.9 K/uL (3.6-10.2)
[2020-02-18 08:59] LABS: BILIRUBIN,DIRECT 0.2 mg/dL (0.0-0.2); BILIRUBIN,TOTAL 0.4 mg/dL (0.2-1.0); CREATININE 0.9 mg/dL (0.6-1.3); POTASSIUM 3.8 mmol/L (3.5-5.1); TOTAL PROTEIN, SERUM 6.7 g/dL (6.4-8.2)
[2020-02-18] MEDS: CHOLECALCIFEROL 1,000 UNIT TABLET PO SCH (09:44)
[2020-02-18] MEDS: ZINC SULFATE 220 MG CAPSULE PO SCH (09:45)
[2020-02-18] MEDS: ASPIRIN EC 325 MG TABLET.DR PO SCH (09:45)
[2020-02-18] MEDS: glipiZIDE 10 MG TABLET PO SCH ×3 (09:45→18:09)
[2020-02-18] MEDS: DEXAMETHASONE SOD PHOSPHATE 4 MG INJ IV SCH (09:46)
[2020-02-18] MEDS: FLUTICASONE/VILANTEROL 1 EACH BLST.W.DEV INH SCH (09:46)
[2020-02-18] MEDS: FUROSEMIDE 20 MG/2 ML VIAL IV SCH (09:46)
[2020-02-18] MEDS: AMIODARONE HCL 200 MG TABLET PO SCH (09:47)
[2020-02-18] MEDS: PROTEIN SUPPLEMENT (PROSTAT) 30 ML LIQUID PO SCH (09:47)
[2020-02-18] MEDS: ENOXAPARIN SODIUM 100 MG/ML DISP.SYRIN SQ SCH ×2 (09:55→21:56)
[2020-02-18 11:53] VITALS: BP 124/72
[2020-02-18] MEDS: HYDROCODONE/APAP 5-325MG TABLET PO PRN (13:30)
[2020-02-18] MEDS: INSULIN REGULAR, HUMAN 300 UNIT/3 ML VIAL SQ PRN ×2 (13:31→18:40)
[2020-02-18] MEDS: REMDESIVIR (CHARGED) 100 MG in IV NORMAL SALINE 100 ML IV SCH (15:00)
[2020-02-18 16:00] VITALS: BP 109/53
[2020-02-18] MEDS ORDERED: METFORMIN HCL 500 MG TABLET PO SCH (18:00)
[2020-02-18] MEDS: METFORMIN HCL 500 MG TABLET PO SCH ×2 (18:00→18:09)
[2020-02-18] MEDS: ACETAMINOPHEN 325 MG TABLET PO PRN (18:09)
[2020-02-18 20:15] VITALS: BP 108/60
[2020-02-18] MEDS: DOCUSATE SODIUM 100 MG CAPSULE PO SCH (21:00)
--- NOTE | 2020-02-18 21:02 | NUR ---
Patient on chair most of the shift AOx4, on high flow 45 L saturating 92%, SOB on exertion. refused PM meds, explained risks and benefits. Safety precaution in place
[2020-02-18] MEDS: INSULIN REGULAR, HUMAN 300 UNITS/3 ML VIAL SQ PRN (21:55)
[2020-02-18] MEDS: INSULIN GLARGINE,HUM 300 UNITS/3 ML CARTRIDGE SQ SCH (21:57)
[2020-02-18] MEDS: CEFTRIAXONE 2 G in IV DEXTROSE 5% 100 ML IV SCH (21:58)
[2020-02-18] MEDS: AZITHROMYCIN IV 500 MG in IV DEXTROSE 5% 250 ML IV SCH (23:27)
[2020-02-19 00:15] VITALS: BP 111/52
[2020-02-19 04:12] VITALS: BP 117/55
[2020-02-19] MEDS: PANTOPRAZOLE SODIUM 40 MG TABLET.DR PO SCH (06:31)
[2020-02-19] MEDS: glipiZIDE 10 MG TABLET PO SCH ×2 (06:31→16:30)
[2020-02-19] MEDS: BLOOD SUGAR DIAGNOSTIC 1 EACH STRIP VI SCH ×4 (06:31→20:54)
[2020-02-19] MEDS: METFORMIN HCL 500 MG TABLET PO SCH ×2 (08:00→17:05)
[2020-02-19] MEDS: PROTEIN SUPPLEMENT (PROSTAT) 30 ML LIQUID PO SCH (08:00)
[2020-02-19 08:18] LABS: BILIRUBIN,DIRECT 0.2 mg/dL (0.0-0.2); BILIRUBIN,TOTAL 0.4 mg/dL (0.2-1.0); CREATININE 0.9 mg/dL (0.6-1.3); PHOSPHOROUS 3.3 mg/dL (2.5-4.9); POTASSIUM 4.1 mmol/L (3.5-5.1)
[2020-02-19] MEDS: FUROSEMIDE 20 MG/2 ML VIAL IV SCH (08:30)
[2020-02-19] MEDS: ASPIRIN EC 325 MG TABLET.DR PO SCH (08:30)
[2020-02-19] MEDS: DEXAMETHASONE SOD PHOSPHATE 4 MG INJ IV SCH (08:30)
[2020-02-19] MEDS: CHOLECALCIFEROL 1,000 UNIT TABLET PO SCH (08:30)
[2020-02-19 08:39] LABS: BASOPHILS % (AUTO) 0.1 % (0.0-2.0); EOSINOPHILS # (AUTO) 0.1 K/uL (0.0-0.7); HEMATOCRIT 39.1 % (36.7-47.1); HEMOGLOBIN 13.5 g/dL (12.5-16.3); LYMPHOCYTES # (AUTO) 1.2 K/uL (20.0-40.0); LYMPHOCYTES % (AUTO) 14.8 % (20.5-51.5); MEAN CORPUSCULAR HEMOGLOBIN 29.2 uug (23.8-33.4); MEAN CORPUSCULAR HGB CONC 34 g/dL (32.5-36.3); MEAN CORPUSCULAR VOLUME 84.9 fL (73.0-96.2); MONOCYTES # (AUTO) 0.4 K/uL (2.0-10.0); NEUTROPHILS # (AUTO) 6.4 K/uL (1.8-8.9); NEUTROPHILS % (AUTO) 79.1 % (38.5-71.5); PLATELET COUNT (AUTO) 496 K/uL (152-348); RED BLOOD CELL COUNT(AUTO) 4.61 MIL/uL (4.06-5.63)
[2020-02-19] MEDS: INSULIN REGULAR, HUMAN 300 UNIT/3 ML VIAL SQ PRN ×3 (08:39→17:16)
[2020-02-19] MEDS: ENOXAPARIN SODIUM 100 MG/ML DISP.SYRIN SQ SCH ×2 (08:40→21:01)
[2020-02-19] MEDS: ZINC SULFATE 220 MG CAPSULE PO SCH (08:59)
[2020-02-19] MEDS: FLUTICASONE/VILANTEROL 1 EACH BLST.W.DEV INH SCH (08:59)
[2020-02-19] MEDS: AMIODARONE HCL 200 MG TABLET PO SCH (08:59)
[2020-02-19] MEDS: ACETAMINOPHEN 325 MG TABLET PO PRN ×2 (12:27→21:20)
[2020-02-19] MEDS: REMDESIVIR (CHARGED) 100 MG in IV NORMAL SALINE 100 ML IV SCH (14:11)
[2020-02-19 16:00] VITALS: BP 105/45
--- NOTE | 2020-02-19 19:30 | NUR ---
RECEIVED PT AWAKE, ALERT AND ORIENTEDX4. PT IN NO ACUTE DISTRESS. IV INTACT. PT ON HIGH FLOW 55L. NURSE ENDORSE THAT PT WANTS HIS OWN MEDICATION WHICH DIDN'T APPROVE FOR HIM TO TAKE. WILL ADD TO HIS BELONGING LIST AND PUT IT ON CONTRABAND. AWARE. PT KEEP ON REQUESTING FOOD. TOLD HIM HE HAS CHF AND DIABETIC. EDUCATED PT REGARDING HIS CONDITION BUT STILL PT INSISTED ON EATING. SAFETY AND COMFORT PROVIDED. WILL CONTINUE TO MONITOR.
--- NOTE | 2020-02-19 19:36 | NUR ---
Patient is alert and oriented x4. Patient noted with dyspnea and SOB. RT notified, high flow increased from 45 L/min to 55 L/min. Patient refusing inhaler. Patient states that he wants to take the herbal supplements to help clear his mucus and to "sweat it out". Patient provided with education about COVID disease process and importance of taking medication for respiratory function as prescribed, able to verbalize understanding but continues to refuse. Patient refusing PO antihyperglycemics, provided with education about importance of taking medications for diabetes management but continues to refuse. Patient's belongings and call light placed within reach.
[2020-02-19 20:24] VITALS: BP 107/61
[2020-02-19] MEDS: CEFTRIAXONE 2 G in IV DEXTROSE 5% 100 ML IV SCH (20:54)
[2020-02-19] MEDS: DOCUSATE SODIUM 100 MG CAPSULE PO SCH (20:54)
[2020-02-19] MEDS: INSULIN GLARGINE,HUM 300 UNITS/3 ML CARTRIDGE SQ SCH (21:01)
[2020-02-19] MEDS: INSULIN REGULAR, HUMAN 300 UNITS/3 ML VIAL SQ PRN (21:01)
[2020-02-19] MEDS: GUAIFENESIN/DEXTROMETHORPHAN 5 ML UDC PO PRN (21:29)
[2020-02-19] MEDS: AZITHROMYCIN IV 500 MG in IV DEXTROSE 5% 250 ML IV SCH (21:37)
[2020-02-20 00:24] VITALS: BP 122/70
[2020-02-20 04:24] VITALS: BP 114/64
[2020-02-20] MEDS: PANTOPRAZOLE SODIUM 40 MG TABLET.DR PO SCH (06:23)
--- NOTE | 2020-02-20 06:30 | NUR ---
ROBITUSSIN MEDICATION WASTED. PT DOESN'T WANT TO TAKE IT. PT IN NO ACUTE DISTRESS.
--- NOTE | 2020-02-20 06:34 | NUR ---
PT SLEPT INTERMITTENTLTY. PT IN NO ACUTE DISTRESS. PT ON HIGH FLOW AT 55L. PT ON SINUS RHYTHM. PT GIVEN ROBITUSSIN DM PRN AT 9H AND TYLENOL AT 2120H PER PT REQUEST. PT TOLERATED IT WELL. PT GIVEN AMBIEN 0118H PRN PER PT REQUEST FOR HIM TO SLEEP. PRESCRIBED MEDICATION GIVEN AND PT TOLERATED IT WELL. PT TURNED AND REPOSITIONED. PT ON RESTRAINT. SAFETY AND COMFORT PROVIDED. ALL NEEDS ARE MET . WILL ENDORSE TO INCOMING NURSE FOR CONITNUITY OF CARE.
[2020-02-20] MEDS: BLOOD SUGAR DIAGNOSTIC 1 EACH STRIP VI SCH ×4 (06:36→22:18)
[2020-02-20] MEDS: INSULIN REGULAR, HUMAN 300 UNIT/3 ML VIAL SQ PRN ×3 (08:07→16:49)
[2020-02-20] MEDS: glipiZIDE 10 MG TABLET PO SCH ×3 (08:26→16:47)
[2020-02-20] MEDS: ASPIRIN EC 325 MG TABLET.DR PO SCH (08:27)
[2020-02-20] MEDS: ACETAMINOPHEN 325 MG TABLET PO PRN ×2 (08:27→17:45)
[2020-02-20] MEDS: AMIODARONE HCL 200 MG TABLET PO SCH (08:28)
[2020-02-20] MEDS: ZINC SULFATE 220 MG CAPSULE PO SCH (08:29)
[2020-02-20] MEDS: FUROSEMIDE 20 MG/2 ML VIAL IV SCH (08:29)
[2020-02-20] MEDS: METFORMIN HCL 500 MG TABLET PO SCH ×3 (08:29→17:42)
[2020-02-20] MEDS: CHOLECALCIFEROL 1,000 UNIT TABLET PO SCH (08:29)
[2020-02-20] MEDS: PROTEIN SUPPLEMENT (PROSTAT) 30 ML LIQUID PO SCH (08:30)
[2020-02-20] MEDS: FLUTICASONE/VILANTEROL 1 EACH BLST.W.DEV INH SCH (08:31)
[2020-02-20] MEDS ORDERED: LORAZEPAM 0.5 MG TABLET PO PRN (08:45)
[2020-02-20] MEDS: ENOXAPARIN SODIUM 100 MG/ML DISP.SYRIN SQ SCH ×2 (08:51→22:17)
[2020-02-20] MEDS ORDERED: HYDROCODONE/APAP 5-325MG TABLET PO PRN (11:00)
[2020-02-20 12:00] VITALS: BP 115/69
[2020-02-20] MEDS ORDERED: ATENOLOL 50 MG TABLET PO SCH ×2 (12:30→13:15)
[2020-02-20] MEDS: ADDERALL 10 MG PO SCH (12:37)
[2020-02-20 13:12] LABS: CRYPTOCOCCUS AB, SERUM Negative (Negative)
[2020-02-20 16:00] VITALS: BP 139/61
[2020-02-20] MEDS: HYDROCODONE/APAP 5-325MG TABLET PO PRN (17:44)
--- NOTE | 2020-02-20 18:37 | NUR ---
patient gets very anxious, and constantly talking about his home meds, try to explain to patient that his home meds are taken care, approved by dr Langford, continue as scheduled, continue on high flow, no fever or chills noted
[2020-02-20 19:53] LABS: COCCIDIOIDES CF SERUM Negative (Neg:<1:2)
[2020-02-20 20:18] VITALS: BP 108/60
[2020-02-20] MEDS ORDERED: INSULIN GLARGINE,HUM 300 UNITS/3 ML CARTRIDGE SQ SCH (21:00)
[2020-02-20] MEDS: CEFTRIAXONE 2 G in IV DEXTROSE 5% 100 ML IV SCH (22:12)
[2020-02-20] MEDS: DOCUSATE SODIUM 100 MG CAPSULE PO SCH (22:12)
[2020-02-20] MEDS ORDERED: FUROSEMIDE 20 MG/2 ML VIAL IV ONE (22:15)
[2020-02-20] MEDS: INSULIN GLARGINE,HUM 300 UNITS/3 ML CARTRIDGE SQ SCH (22:19)
[2020-02-20] MEDS: INSULIN REGULAR, HUMAN 300 UNITS/3 ML VIAL SQ PRN (22:20)
[2020-02-21 00:06] VITALS: BP 153/67
[2020-02-21 00:15] VITALS: BP_SYST 105; BP_SYST 116; BP_DIAS 63; BP_DIAS 65
--- NOTE | 2020-02-21 00:42 | NUR ---
Received pt resting in bed. AAO x3. On high flow 55L NC, no acute distress noted. Pt noted to be anxious regarding his medications. Pt complaining that he needs to pee more and he feels fluid on his chest. Pt requesting his Lasix. No scheduled Lasix at night. Notified Dr. Bagley of pt's request and condition. New order to give Lasix IV 20mg NOW, carried out order. Due meds given as ordered. Accucheck 247, insulin coverage given as per sliding scale. Safety measures maintained. Call light and personal items within reach. Will continue to monitor.
[2020-02-21 04:15] VITALS: BP 105/63
[2020-02-21] MEDS: PANTOPRAZOLE SODIUM 40 MG TABLET.DR PO SCH (06:23)
[2020-02-21] MEDS: BLOOD SUGAR DIAGNOSTIC 1 EACH STRIP VI SCH ×4 (06:34→20:38)
[2020-02-21] MEDS: CHOLECALCIFEROL 1,000 UNIT TABLET PO SCH (08:49)
[2020-02-21] MEDS: METFORMIN HCL 500 MG TABLET PO SCH ×2 (08:49→17:25)
[2020-02-21] MEDS: AMIODARONE HCL 200 MG TABLET PO SCH (08:50)
[2020-02-21] MEDS: METOPROLOL SUCCINATE XL 50 MG TAB.SR.24H PO SCH (08:50)
[2020-02-21] MEDS: ZINC SULFATE 220 MG CAPSULE PO SCH (08:50)
[2020-02-21] MEDS: ASPIRIN EC 81 MG TABLET.DR PO SCH (08:50)
[2020-02-21] MEDS: ENOXAPARIN SODIUM 100 MG/ML DISP.SYRIN SQ SCH ×2 (08:51→20:37)
[2020-02-21] MEDS: PAPAYA ENZYME PO SCH (08:53)
[2020-02-21] MEDS: IMMUNE PO SCH (08:53)
[2020-02-21] MEDS: MAGNESIUM OXIDE 250 MG TABLET PO SCH (08:58)
[2020-02-21] MEDS ORDERED: FUROSEMIDE 40 MG TABLET PO SCH (09:00)
[2020-02-21] MEDS ORDERED: COQ PO SCH (09:00)
[2020-02-21] MEDS: glipiZIDE 10 MG TABLET PO SCH ×2 (09:00→17:25)
[2020-02-21] MEDS ORDERED: MUCUS RELIEF PO SCH (09:00)
[2020-02-21] MEDS ORDERED: ADDERALL 10 MG PO SCH (09:00)
[2020-02-21] MEDS: ADDERALL 10 MG PO SCH (09:01)
[2020-02-21] MEDS: PROTEIN SUPPLEMENT (PROSTAT) 30 ML LIQUID PO SCH (09:01)
[2020-02-21] MEDS: FLUTICASONE/VILANTEROL 1 EACH BLST.W.DEV INH SCH (09:02)
[2020-02-21] MEDS: HYDROCODONE/APAP 5-325MG TABLET PO PRN ×2 (10:16→17:25)
[2020-02-21] MEDS ORDERED: DEXAMETHASONE SOD PHOSPHATE 4 MG INJ IV SCH (10:30)
[2020-02-21 12:12] VITALS: BP 125/76
[2020-02-21 12:30] LABS: BASOPHILS % (AUTO) 0.3 % (0.0-2.0); EOSINOPHILS % (AUTO) 0.4 % (0.0-7.0); HEMATOCRIT 42.8 % (36.7-47.1); HEMOGLOBIN 14.2 g/dL (12.5-16.3); LYMPHOCYTES # (AUTO) 0.7 K/uL (20.0-40.0); LYMPHOCYTES % (AUTO) 5.6 % (20.5-51.5); MEAN CORPUSCULAR HEMOGLOBIN 27.9 uug (23.8-33.4); MEAN CORPUSCULAR HGB CONC 33 g/dL (32.5-36.3); MEAN CORPUSCULAR VOLUME 84.1 fL (73.0-96.2); MONOCYTES # (AUTO) 0.4 K/uL (2.0-10.0); MONOCYTES % (AUTO) 3.2 % (0.0-11.0); NEUTROPHILS # (AUTO) 11.9 K/uL (1.8-8.9); NEUTROPHILS % (AUTO) 90.5 % (38.5-71.5); PLATELET COUNT (AUTO) 476 K/uL (152-348); RED BLOOD CELL COUNT(AUTO) 5.09 MIL/uL (4.06-5.63); WHITE BLOOD COUNT (AUTO) 13.2 K/uL (3.6-10.2)
[2020-02-21 12:43] LABS: BILIRUBIN,DIRECT 0.2 mg/dL (0.0-0.2); BILIRUBIN,TOTAL 0.6 mg/dL (0.2-1.0); CREATININE 0.8 mg/dL (0.6-1.3); MAGNESIUM 1.9 mg/dL (1.8-2.4); PHOSPHOROUS 2.9 mg/dL (2.5-4.9); POTASSIUM 3.2 mmol/L (3.5-5.1); TOTAL PROTEIN, SERUM 7.3 g/dL (6.4-8.2)
[2020-02-21 16:26] VITALS: BP 117/68
[2020-02-21] MEDS ORDERED: POTASSIUM CHLORIDE 20 MEQ TAB.PRT.SR PO ONE (16:30)
[2020-02-21] MEDS: FUROSEMIDE 40 MG TABLET PO SCH (17:25)
[2020-02-21] MEDS: INSULIN REGULAR, HUMAN 300 UNIT/3 ML VIAL SQ PRN (17:35)
[2020-02-21] MEDS: DOCUSATE SODIUM 100 MG CAPSULE PO SCH (20:34)
[2020-02-21] MEDS: MELATONIN 3 MG TABLET PO SCH (20:34)
[2020-02-21] MEDS: ACETAMINOPHEN 325 MG TABLET PO PRN (20:36)
[2020-02-21] MEDS: INSULIN REGULAR, HUMAN 300 UNITS/3 ML VIAL SQ PRN (20:41)
[2020-02-21] MEDS: INSULIN GLARGINE,HUM 300 UNITS/3 ML CARTRIDGE SQ SCH (20:42)
[2020-02-21 21:00] VITALS: BP 111/66
--- NOTE | 2020-02-21 21:56 | NUR ---
Received pt resting in bed and watching tv. AAO x3. On high flow 55L NC, no acute distress noted. C/o mild generalized pain, pt requested tylenol. Meds given as ordered. Accucheck 147, insulin coverage given as per sliding scale. Safety measures maintained. Call light and personal items within reach. Will continue to monitor.
[2020-02-22 01:49] VITALS: BP 111/61
[2020-02-22] MEDS: ACETAMINOPHEN 325 MG TABLET PO PRN ×2 (03:10→22:10)
[2020-02-22] MEDS: GUAIFENESIN/DEXTROMETHORPHAN 5 ML UDC PO PRN ×2 (03:28→17:42)
[2020-02-22] MEDS: PANTOPRAZOLE SODIUM 40 MG TABLET.DR PO SCH (06:17)
[2020-02-22 06:39] VITALS: BP 107/64
[2020-02-22] MEDS: BLOOD SUGAR DIAGNOSTIC 1 EACH STRIP VI SCH ×4 (07:00→22:07)
[2020-02-22] MEDS: glipiZIDE 10 MG TABLET PO SCH ×2 (07:30→16:30)
[2020-02-22 08:00] VITALS: BP 107/72
[2020-02-22] MEDS: METFORMIN HCL 500 MG TABLET PO SCH ×2 (08:00→17:39)
[2020-02-22] MEDS: ASPIRIN EC 81 MG TABLET.DR PO SCH (08:59)
[2020-02-22] MEDS: FUROSEMIDE 40 MG TABLET PO SCH ×2 (08:59→17:39)
[2020-02-22] MEDS: ADDERALL 10 MG PO SCH (09:00)
[2020-02-22] MEDS: HYDROCODONE/APAP 5-325MG TABLET PO PRN ×3 (09:00→18:26)
[2020-02-22] MEDS: MAGNESIUM OXIDE 250 MG TABLET PO SCH (09:00)
[2020-02-22] MEDS: AMIODARONE HCL 200 MG TABLET PO SCH (09:02)
[2020-02-22] MEDS: FLUTICASONE/VILANTEROL 1 EACH BLST.W.DEV INH SCH (09:03)
[2020-02-22] MEDS: DEXAMETHASONE 4 MG TABLET PO SCH (09:04)
[2020-02-22] MEDS: ENOXAPARIN SODIUM 100 MG/ML DISP.SYRIN SQ SCH ×2 (09:19→21:00)
[2020-02-22 11:24] LABS: CREATININE 0.9 mg/dL (0.6-1.3); MAGNESIUM 2.2 mg/dL (1.8-2.4); PHOSPHOROUS 4.3 mg/dL (2.5-4.9); POTASSIUM 3.3 mmol/L (3.5-5.1)
[2020-02-22 11:29] LABS: BASOPHILS % (AUTO) 0.2 % (0.0-2.0); EOSINOPHILS # (AUTO) 0.1 K/uL (0.0-0.7); EOSINOPHILS % (AUTO) 0.7 % (0.0-7.0); HEMATOCRIT 41.3 % (36.7-47.1); HEMOGLOBIN 13.5 g/dL (12.5-16.3); LYMPHOCYTES # (AUTO) 0.8 K/uL (20.0-40.0); LYMPHOCYTES % (AUTO) 6.9 % (20.5-51.5); MEAN CORPUSCULAR HEMOGLOBIN 27.8 uug (23.8-33.4); MEAN CORPUSCULAR HGB CONC 33 g/dL (32.5-36.3); MEAN CORPUSCULAR VOLUME 84.7 fL (73.0-96.2); MONOCYTES # (AUTO) 0.5 K/uL (2.0-10.0); MONOCYTES % (AUTO) 4.7 % (0.0-11.0); NEUTROPHILS # (AUTO) 9.9 K/uL (1.8-8.9); NEUTROPHILS % (AUTO) 87.5 % (38.5-71.5); PLATELET COUNT (AUTO) 487 K/uL (152-348); RED BLOOD CELL COUNT(AUTO) 4.87 MIL/uL (4.06-5.63); WHITE BLOOD COUNT (AUTO) 11.3 K/uL (3.6-10.2)
[2020-02-22] MEDS: CHOLECALCIFEROL 1,000 UNIT TABLET PO SCH (11:31)
[2020-02-22] MEDS: ZINC SULFATE 220 MG CAPSULE PO SCH (11:31)
[2020-02-22] MEDS: PROTEIN SUPPLEMENT (PROSTAT) 30 ML LIQUID PO SCH (11:33)
[2020-02-22] MEDS: IMMUNE PO SCH (11:34)
[2020-02-22] MEDS: PAPAYA ENZYME PO SCH (11:34)
[2020-02-22] MEDS: MUCUS RELIEF PO SCH (11:35)
[2020-02-22] MEDS: COQ PO SCH (11:35)
[2020-02-22 12:00] VITALS: BP 118/73
[2020-02-22] MEDS: METOPROLOL SUCCINATE XL 50 MG TAB.SR.24H PO SCH (12:16)
[2020-02-22] MEDS: CEFTRIAXONE 2 G in IV DEXTROSE 5% 100 ML IV SCH (12:30)
[2020-02-22] MEDS ORDERED: POTASSIUM CHLORIDE 20 MEQ TAB.PRT.SR PO ONE (13:15)
[2020-02-22 16:00] VITALS: BP 110/65
--- NOTE | 2020-02-22 17:37 | NUR ---
AM ADDERALL NOT GIVEN. RETURNED BACK TO PHARMACY
[2020-02-22] MEDS: INSULIN REGULAR, HUMAN 300 UNIT/3 ML VIAL SQ PRN (17:41)
--- NOTE | 2020-02-22 18:27 | NUR ---
INCREASING IN AGITATION REQUESTING TO HAVE ADDERALL THAT WAS HELD THIS AM
[2020-02-22] MEDS ORDERED: ADDERALL 10 MG PO ONE (18:30)
[2020-02-22] MEDS: MORPHINE SULFATE 2 MG/1 ML DISP.SYRIN IV PRN (19:21)
--- NOTE | 2020-02-22 19:30 | NUR ---
RECEIVED PT AWAKE, ALERT , AND ORIENTEDX3. PT ON 15LNONREBREATHER MASK AND 55L HIGH FLOW. PT IN NO ACUTE DISTRESS. IV WAS PULLED OUT. SAFETY AND COMFORT PROVIDED. WILL CONTINUE TO MONITOR.
[2020-02-22 20:07] LABS: ABG BASE EXCESS 3.8 mmol/L; ABG HCO3 26.9 mmol/L; ABG PCO2 35.9 mmHg (35.0-45.0); ABG PH 7.493 (7.350-7.450); ABG PO2 59.1 mmHg (75.0-100.0); ABG SITE RIGHT RADIAL; ABG TOTAL HEMOGLOBIN 14.2 G/dL (13.5-18.0); COHb 0.9 % (0.5-1.5); MetHb 0.1 % (0.0-1.5); O2Hb 90.4 % (94.0-97.0); VENT MODE HF - Aquinox
[2020-02-22 20:34] VITALS: BP 134/71
[2020-02-22] MEDS: INSULIN GLARGINE,HUM 300 UNITS/3 ML CARTRIDGE SQ SCH (21:00)
[2020-02-22] MEDS: DOCUSATE SODIUM 100 MG CAPSULE PO SCH (21:00)
--- NOTE | 2020-02-22 22:00 | NUR ---
NOTIFY DR. MELÉNDEZ REGARDING ABG RESULT OF THE PT. NO ORDERS NOTED. WILL CONTINUE TO MONITOR.
[2020-02-22] MEDS: MELATONIN 3 MG TABLET PO SCH (22:07)
[2020-02-22] MEDS: INSULIN REGULAR, HUMAN 300 UNITS/3 ML VIAL SQ PRN (22:13)
[2020-02-23 00:28] VITALS: BP 113/71
[2020-02-23] MEDS: HYDROCODONE/APAP 5-325MG TABLET PO PRN ×3 (01:00→15:53)
[2020-02-23] MEDS: GUAIFENESIN/DEXTROMETHORPHAN 5 ML UDC PO PRN (01:00)
[2020-02-23 04:30] VITALS: BP 142/64
--- NOTE | 2020-02-23 06:15 | NUR ---
FAMILY OF PT CALLED AT 2130H. GAVE UPDATE REGARDING THE PT. PT SLEPT INTERMITTENTLY. PT IN NO ACUTE DISTRESS. PT GIVEN TYLENOL 650MG PRN AT 2210H. AT 0100H [place] PRN GIVEN PER PT REQUEST. PT TOLERATED IT WELL. PT ON 55L HIGH FLOW AND 10L NONREBREATHER .PRESCRIBED MEDICATION GIVEN AND PT TOLERATED IT WELL. WASTED 2 ROBITUSSIN DM PER PT REFUSED THE MEDICATION WHEN I BROUGHT IT INSIDE THE ROOM BUT PT ASKED FOR IT BEFORE BRINGING IT TO THE ROOM. WILL ENDORSE THAT FAMILY WANTS SMALL DOSE OF ATIVAN FOR THE PT FOR ANXIETY AND CHANGE AMBIEN MEDICATION TO OTHER SLEEPING MEDICATION. SAFETY AND COMFORT PROVIDED. ALL NEEDS ARE MET. WILL ENDORSE TO INCOMING NURSE FOR CONTINUITY OF CARE.
[2020-02-23] MEDS: ACETAMINOPHEN 325 MG TABLET PO PRN ×3 (06:16→20:42)
--- NOTE | 2020-02-23 06:16 | NUR ---
FAMILY OF PT CALLED AT 2130H. GAVE UPDATE REGARDING THE PT. PT SLEPT INTERMITTENTLY. PT IN NO ACUTE DISTRESS. PT GIVEN TYLENOL 650MG PRN AT 2210HAND 0610H. AT 0100H [place] PRN GIVEN PER PT REQUEST. PT TOLERATED IT WELL. PT ON 55L HIGH FLOW AND 10L NONREBREATHER .PRESCRIBED MEDICATION GIVEN AND PT TOLERATED IT WELL. WASTED 2 ROBITUSSIN DM PER PT REFUSED THE MEDICATION WHEN I BROUGHT IT INSIDE THE ROOM BUT PT ASKED FOR IT BEFORE BRINGING IT TO THE ROOM. WILL ENDORSE THAT FAMILY WANTS SMALL DOSE OF ATIVAN FOR THE PT FOR ANXIETY AND CHANGE AMBIEN MEDICATION TO OTHER SLEEPING MEDICATION. SAFETY AND COMFORT PROVIDED. ALL NEEDS ARE MET. WILL ENDORSE TO INCOMING NURSE FOR CONTINUITY OF CARE.
[2020-02-23] MEDS: PANTOPRAZOLE SODIUM 40 MG TABLET.DR PO SCH (06:24)
[2020-02-23] MEDS: BLOOD SUGAR DIAGNOSTIC 1 EACH STRIP VI SCH ×4 (06:30→21:33)
[2020-02-23 06:53] LABS: BASOPHILS # (AUTO) 0.1 K/uL (0.0-8.0); BASOPHILS % (AUTO) 0.7 % (0.0-2.0); EOSINOPHILS # (AUTO) 0.1 K/uL (0.0-0.7); EOSINOPHILS % (AUTO) 0.6 % (0.0-7.0); HEMATOCRIT 40.4 % (36.7-47.1); HEMOGLOBIN 13.3 g/dL (12.5-16.3); LYMPHOCYTES % (AUTO) 8.3 % (20.5-51.5); MEAN CORPUSCULAR HEMOGLOBIN 27.8 uug (23.8-33.4); MEAN CORPUSCULAR HGB CONC 33 g/dL (32.5-36.3); MEAN CORPUSCULAR VOLUME 84.4 fL (73.0-96.2); MONOCYTES # (AUTO) 0.6 K/uL (2.0-10.0); MONOCYTES % (AUTO) 5.3 % (0.0-11.0); NEUTROPHILS % (AUTO) 85.1 % (38.5-71.5); PLATELET COUNT (AUTO) 506 K/uL (152-348); RED BLOOD CELL COUNT(AUTO) 4.79 MIL/uL (4.06-5.63); WHITE BLOOD COUNT (AUTO) 11.7 K/uL (3.6-10.2)
[2020-02-23 07:01] LABS: BILIRUBIN,TOTAL 0.5 mg/dL (0.2-1.0); CREATININE 0.9 mg/dL (0.6-1.3); POTASSIUM 3.6 mmol/L (3.5-5.1); TOTAL PROTEIN, SERUM 7.2 g/dL (6.4-8.2)
[2020-02-23] MEDS: glipiZIDE 10 MG TABLET PO SCH ×2 (07:30→16:30)
[2020-02-23] MEDS: CHOLECALCIFEROL 1,000 UNIT TABLET PO SCH (08:09)
[2020-02-23] MEDS: METFORMIN HCL 500 MG TABLET PO SCH ×2 (08:09→16:56)
[2020-02-23] MEDS: DEXAMETHASONE 4 MG TABLET PO SCH (08:09)
[2020-02-23] MEDS: ADDERALL 10 MG PO SCH (08:10)
[2020-02-23] MEDS: AMIODARONE HCL 200 MG TABLET PO SCH (08:11)
[2020-02-23] MEDS: ASPIRIN EC 81 MG TABLET.DR PO SCH (08:11)
[2020-02-23] MEDS: FUROSEMIDE 40 MG TABLET PO SCH ×2 (08:11→17:08)
[2020-02-23] MEDS: PROTEIN SUPPLEMENT (PROSTAT) 30 ML LIQUID PO SCH (08:12)
[2020-02-23] MEDS: FLUTICASONE/VILANTEROL 1 EACH BLST.W.DEV INH SCH (08:12)
[2020-02-23] MEDS: MORPHINE SULFATE 2 MG/1 ML DISP.SYRIN IV PRN ×4 (08:12→23:13)
[2020-02-23] MEDS: PAPAYA ENZYME PO SCH (08:14)
[2020-02-23] MEDS: MUCUS RELIEF PO SCH (08:14)
[2020-02-23] MEDS: COQ PO SCH (08:15)
[2020-02-23] MEDS: IMMUNE PO SCH (08:15)
[2020-02-23] MEDS: METOPROLOL SUCCINATE XL 50 MG TAB.SR.24H PO SCH (09:00)
[2020-02-23] MEDS: MAGNESIUM OXIDE 250 MG TABLET PO SCH (09:00)
[2020-02-23 11:40] VITALS: BP 127/69
[2020-02-23] MEDS: ENOXAPARIN SODIUM 100 MG/ML DISP.SYRIN SQ SCH ×2 (12:20→21:34)
[2020-02-23] MEDS: ZINC SULFATE 220 MG CAPSULE PO SCH (12:20)
[2020-02-23] MEDS: CEFTRIAXONE 2 G in IV DEXTROSE 5% 100 ML IV SCH (12:26)
[2020-02-23] MEDS: FLUVOXAMINE MALEATE 25 MG TABLET PO SCH ×2 (12:45→17:08)
[2020-02-23 16:21] VITALS: BP 145/67
[2020-02-23] MEDS: INSULIN REGULAR, HUMAN 300 UNIT/3 ML VIAL SQ PRN (17:20)
--- NOTE | 2020-02-23 19:30 | NUR ---
RECEIVED PT AWAKE, ALERT AND ORIENTEDX3. PT IN NO ACUTE DISTRESS. IV INTACT. PT ASKING FOR PAIN MEDICATION. SAFETY AND COMFORT PROVIDED. WILL CONTINUE TO MONITOR.
[2020-02-23 20:34] VITALS: BP_SYST 113; BP_SYST 129; BP_DIAS 55; BP_DIAS 76
[2020-02-23] MEDS: DOCUSATE SODIUM 100 MG CAPSULE PO SCH (20:42)
[2020-02-23] MEDS: MELATONIN 3 MG TABLET PO SCH (20:42)
[2020-02-23] MEDS: INSULIN GLARGINE,HUM 300 UNITS/3 ML CARTRIDGE SQ SCH (21:34)
[2020-02-23] MEDS: INSULIN REGULAR, HUMAN 300 UNITS/3 ML VIAL SQ PRN (21:35)
[2020-02-24 00:40] VITALS: BP 132/58
[2020-02-24 04:00] VITALS: BP 125/66
[2020-02-24] MEDS: MORPHINE SULFATE 2 MG/1 ML DISP.SYRIN IV PRN ×2 (04:24→10:03)
--- NOTE | 2020-02-24 06:21 | NUR ---
PT SLEPT INTERMITTENTLY. PT IN NO ACUTE DISTRESS. PRESCRIBED MEDICATION GIVEN AND PT TOLERATED IT WELL. PT GIVEN TYLENOL 650MG PRN AT 2042H AND 0622H FOR PAIN. PT GIVEN MORPHINE 2MG PRN AT 2313H AND 0424H . PT TOLERATED IT WELL. BLOOD SUGAR WAS 258 AND SAFETY AND COMFORT PROVIDED. ALL NEEDS ARE MET. WILL ENDORSE TO INCOMING NURSE FOR CONTINUITY OF CARE.
[2020-02-24] MEDS: ACETAMINOPHEN 325 MG TABLET PO PRN (06:22)
--- NOTE | 2020-02-24 06:22 | NUR ---
RECENT BLOOD SUGAR 330. PT IN NO ACUTE DISTRESS. WILL ENDORSE.
[2020-02-24] MEDS: PANTOPRAZOLE SODIUM 40 MG TABLET.DR PO SCH (06:29)
[2020-02-24] MEDS: BLOOD SUGAR DIAGNOSTIC 1 EACH STRIP VI SCH ×3 (06:38→16:44)
[2020-02-24] MEDS: METFORMIN HCL 500 MG TABLET PO SCH ×2 (08:00→09:36)
[2020-02-24] MEDS: FUROSEMIDE 40 MG TABLET PO SCH ×3 (09:00→17:00)
[2020-02-24] MEDS: INSULIN REGULAR, HUMAN 300 UNIT/3 ML VIAL SQ PRN ×3 (09:28→17:12)
[2020-02-24] MEDS: COQ PO SCH (09:31)
[2020-02-24] MEDS: MUCUS RELIEF PO SCH (09:31)
[2020-02-24] MEDS: PAPAYA ENZYME PO SCH (09:31)
[2020-02-24] MEDS: glipiZIDE 10 MG TABLET PO SCH ×2 (09:31→16:26)
[2020-02-24] MEDS: IMMUNE PO SCH (09:32)
[2020-02-24] MEDS: CHOLECALCIFEROL 1,000 UNIT TABLET PO SCH (09:33)
[2020-02-24] MEDS: ADDERALL 10 MG PO SCH (09:33)
[2020-02-24] MEDS: ZINC SULFATE 220 MG CAPSULE PO SCH (09:34)
[2020-02-24] MEDS: ASPIRIN EC 81 MG TABLET.DR PO SCH (09:34)
[2020-02-24] MEDS: DEXAMETHASONE 4 MG TABLET PO SCH (09:35)
[2020-02-24] MEDS: FLUVOXAMINE MALEATE 25 MG TABLET PO SCH ×2 (09:38→17:00)
[2020-02-24] MEDS: ENOXAPARIN SODIUM 100 MG/ML DISP.SYRIN SQ SCH (09:44)
[2020-02-24] MEDS: PROTEIN SUPPLEMENT (PROSTAT) 30 ML LIQUID PO SCH (09:45)
[2020-02-24] MEDS: FLUTICASONE/VILANTEROL 1 EACH BLST.W.DEV INH SCH (09:46)
[2020-02-24] MEDS: AMIODARONE HCL 200 MG TABLET PO SCH (09:47)
[2020-02-24] MEDS: METOPROLOL SUCCINATE XL 50 MG TAB.SR.24H PO SCH (09:48)
[2020-02-24] MEDS: CEFTRIAXONE 2 G in IV DEXTROSE 5% 100 ML IV SCH (09:54)
[2020-02-24] MEDS: MAGNESIUM OXIDE 250 MG TABLET PO SCH (09:54)
--- NOTE | 2020-02-24 10:00 | NUR ---
PATIENT REFUSED HIS SOME OF HIS MORNING MEDS, WASTED, HOWEVER PATIENT TOOK HIS ADDERALL AND LUVOX SCHEDULED
[2020-02-24 10:35] LABS: ABG BASE EXCESS 1.5 mmol/L; ABG HCO3 24.1 mmol/L; ABG PCO2 32.7 mmHg (35.0-45.0); ABG PH 7.486 (7.350-7.450); ABG PO2 41.4 mmHg (75.0-100.0); ABG SITE LEFT RADIAL; ABG TOTAL HEMOGLOBIN 15.1 G/dL (13.5-18.0); COHb 1.3 % (0.5-1.5); MetHb 0.2 % (0.0-1.5); O2Hb 77.8 % (94.0-97.0); VENT MODE HF - Aquinox
--- NOTE | 2020-02-24 11:17 | NUR ---
dr molina made aware about patient ABGs result, calling dr hager per dr molina recommendation Addendum: 02/24/20 at 1119 by ISABEL ELDRIDGE RN RN calling office number [phone]
--- NOTE | 2020-02-24 11:20 | NUR ---
called dr hager office and left message with evp and chief operating officer for ABGs, waiting for call back
[2020-02-24 11:51] VITALS: BP 154/121
--- NOTE | 2020-02-24 12:37 | NUR ---
called code rapid, patient is being intubated, ER doctor is at bedside
--- NOTE | 2020-02-24 13:00 | NUR ---
ETOMIDATE 20MG IV PUSHED ADMINISTERED FOR INTUBATION SUCCINATE CHOLINE 100MG IV ADMINISTERED FOR INTUBATION
[2020-02-24] MEDS ORDERED: ETOMIDATE 20 MG/10 ML VIAL IV ONE (13:01)
[2020-02-24] MEDS ORDERED: SUCCINYLCHOLINE CHLORIDE 200 MG/10 ML VIAL IV ONE (13:01)
--- NOTE | 2020-02-24 13:03 | NUR ---
Pt was brought to ER from tele floor by primary nurse and RT post rapid response. Per nursing supervisor sterile processing there are no CCU beds available. Pt placed in room 1a. Dr. Villeda, RT and nursing staff at bedside. Per report pt's ET tube became dislodged while on tele floor.
--- NOTE | 2020-02-24 13:07 | NUR ---
patient intubated and transferred to ER Addendum: 02/24/20 at 1417 by ISABEL ELDRIDGE RN, RN SAYDA CERNA OKAYED TO TRANSFER PATIENT TO ER
--- NOTE | 2020-02-24 13:15 | NUR ---
Pt was re-intubated by Dr. Villeda. Pt placed on vent by RT. BP 105/40, HR 99, RR 24, No pulse ox reading.
[2020-02-24] MEDS ORDERED: PROPOFOL 100 ML IV PRN (13:30)
--- NOTE | 2020-02-24 13:30 | NUR ---
PATIENT BELONGINGS ARE SENT WITH PATIENT
--- NOTE | 2020-02-24 13:30 | NUR ---
Propofol started at 10 mcg/kg/min via RAC 20ga. as ordered by .
[2020-02-24] MEDS ORDERED: PROPOFOL 100 ML ONE (13:33)
--- NOTE | 2020-02-24 13:35 | NUR ---
Dr. Sampson is at the bedside.
--- NOTE | 2020-02-24 13:50 | NUR ---
Order for Vent setting change by , RT notified.
--- NOTE | 2020-02-24 14:30 | NUR ---
Pt still moving his extremities, Propofol drip increased to 15mcg/kg/min.
--- NOTE | 2020-02-24 14:49 | NUR ---
Midline placed to LUE by Cora as ordered by .
--- NOTE | 2020-02-24 15:00 | NUR ---
Propofol drip increased to 20mcg/kg/min.
[2020-02-24 15:12] LABS: ABG BASE EXCESS -5.3 mmol/L; ABG HCO3 27.2 mmol/L; ABG PCO2 94.1 mmHg (35.0-45.0); ABG PH 7.079 (7.350-7.450); ABG PO2 55.3 mmHg (75.0-100.0); ABG SITE LEFT RADIAL; ABG TOTAL HEMOGLOBIN 14.3 G/dL (13.5-18.0); COHb 1.2 % (0.5-1.5); MetHb 0.4 % (0.0-1.5); O2Hb 72.4 % (94.0-97.0); VENT MODE VENT - A/C; VT, ABG 550 mL
--- NOTE | 2020-02-24 15:15 | NUR ---
ABG result given to by RT, order to increase rate from 24 to 30.
[2020-02-24] MEDS ORDERED: MEROPENEM 0.5 G in IV NORMAL SALINE 50 ML IV ONE (16:00)
[2020-02-24] MEDS ORDERED: VANCOMYCIN IV 1,000 MG in IV DEXTROSE 5% 250 ML IV SCH (16:00)
--- NOTE | 2020-02-24 16:00 | NUR ---
Dr. Gonsalves in to see pt, updated on pt's condition and ABG results.
[2020-02-24] MEDS ORDERED: INSULIN REGULAR, HUMAN 300 UNIT/3 ML VIAL ONE (16:51)
[2020-02-24] MEDS ORDERED: DEXTROSE 50% 50 ML DISP.SYRIN IV PRN (17:45)
--- NOTE | 2020-02-24 17:54 | NUR ---
Pt became bradycardic, started desaturating and became pulseless. Dayana Mei called. , and dayana mei team at bedside.
[2020-02-24] MEDS ORDERED: INSULIN REGULAR, HUMAN 300 UNIT/3 ML VIAL SQ PRN (18:00)
[2020-02-24] MEDS ORDERED: BLOOD SUGAR DIAGNOSTIC 1 EACH STRIP VI SCH (18:00)
[2020-02-24] MEDS ORDERED: EPINEPHRINE 1:10,000 1 MG/10 ML DISP.SYRIN IV ONE (18:11)
[2020-02-24] MEDS ORDERED: SODIUM BICARBONATE 8.4% 50 MEQ/50 ML DISP.SYRIN IV ONE (18:11)
[2020-02-24] MEDS ORDERED: IV NORMAL SALINE 1000 ML BAG IV ONE (18:11)
[2020-02-24] MEDS ORDERED: CALCIUM CHLORIDE 1 GM/10 ML DISP.SYRIN IV ONE (18:11)
--- NOTE | 2020-02-24 18:12 | NUR ---
Please see code blue sheet for information during the code.
--- NOTE | 2020-02-24 18:12 | NUR ---
Pt was pronounced by .
--- NOTE | 2020-02-24 18:20 | NUR ---
Called [facility] and spoke with Ev, requested informaion provided, Ev stated pt is not a canditate. Case# [id number]. Nursing supervisor roving notified.
--- NOTE | 2020-02-24 18:30 | NUR ---
Called [facility] to notiffy pmd of pt's expiration. Process Improvement Engineer stated he will page to on-call doctor.
--- NOTE | 2020-02-24 18:36 | NUR ---
Dr. Villeda spoke with pt's next of kin Richar and notified her of pt's expiration.
--- NOTE | 2020-02-24 19:58 | NUR ---
[facility] patient remains on 02/25/20
--- NOTE | 2020-02-24 20:26 | NUR ---
mortuary switched to Natanael [facility] [phone], awaiting return call for ETA
--- NOTE | 2020-02-24 20:45 | NUR ---
Patient remains transport to [facility]
[2020-02-25] MEDS ORDERED: MEROPENEM 0.5 G in IV NORMAL SALINE 50 ML IV SCH ×2
[2020-02-25] MEDS ORDERED: PANTOPRAZOLE SODIUM 40 MG VIAL IV SCH (09:00)
== END 2020-02-24 18:12 | disposition expired | DRG 208 ==
LOC: ER 15:48 → TELE3 23:45 → MEDSURG3 02-12 22:29 → TELE3 02-15 12:31 → TRANSITION 02-24 13:01
PROVIDERS: ADMIT Internal Medicine; ATTEND Internal Medicine
PROC: XW033E5 Introduction of Remdesivir Anti-infective into Peripheral Vein, Percutaneous Approach, New Technology Group 5 (ICD-10-PCS; principal; 2020-02-15)
PROC: 5A1935Z Respiratory Ventilation, Less than 24 Consecutive Hours (ICD-10-PCS; 2020-02-24)
PROC: 0BH17EZ Insertion of Endotracheal Airway into Trachea, Via Natural or Artificial Opening (ICD-10-PCS; 2020-02-24)
PROC: 5A09357 Assistance with Respiratory Ventilation, Less than 24 Consecutive Hours, Continuous Positive Airway Pressure (ICD-10-PCS; 2020-02-24)
PROC: 5A12012 Performance of Cardiac Output, Single, Manual (ICD-10-PCS; 2020-02-24)
PROC: 05HY33Z Insertion of Infusion Device into Upper Vein, Percutaneous Approach (ICD-10-PCS; 2020-02-24)
DX: U07.1 COVID-19 (principal); J96.01 Acute respiratory failure with hypoxia; I21.A1 Myocardial infarction type 2; I26.99 Other pulmonary embolism without acute cor pulmonale; J12.82 Pneumonia due to coronavirus disease 2019; I50.23 Acute on chronic systolic (congestive) heart failure; E22.2 Syndrome of inappropriate secretion of antidiuretic hormone; I42.9 Cardiomyopathy, unspecified; Z95.810 Presence of automatic (implantable) cardiac defibrillator; M19.90 Unspecified osteoarthritis, unspecified site; I11.0 Hypertensive heart disease with heart failure; E11.65 Type 2 diabetes mellitus with hyperglycemia; E27.8 Other specified disorders of adrenal gland; E66.9 Obesity, unspecified; Z68.28 Body mass index [BMI] 28.0-28.9, adult; E86.1 Hypovolemia; E87.6 Hypokalemia; F98.8 Other specified behavioral and emotional disorders with onset usually occurring in childhood and adolescence; I25.10 Atherosclerotic heart disease of native coronary artery without angina pectoris; I25.2 Old myocardial infarction; I46.9 Cardiac arrest, cause unspecified
CPT/HCPCS: 36415; 36600; 70030-TC; 71045; 71275; 82652; 83605; 83615; 83735; 84100; 84300; 84443; 84550; 85025; 85610; 85730; 86140; 86480; 86803; 87040; 87328; 87400; 87806; 93005; 93307; 94002; 94660; A4663; A9150; G0378; J0171; J0330; J0456; J0696; J1100; J1650; J1815; J1940; J2185; J2270; J3370; J3490; J3535; J7030; J7050; J7060; J7070; J8540; Q9967; U0003